=== PATIENT | male | born 1980 | race Caucasian/White ===

== ENCOUNTER 2018-07-08 23:20 | Emergency (ER) | payer BC, OTHER ==
--- NOTE | 2018-07-08 23:45 | ER Document Report ---
ED Headache - General Chief Complaint: Headache Stated Complaint: HEAD PAIN Time Seen by Provider: 07/08/18 23:40 Mode of Arrival: Ambulatory Information source: Patient Notes: 38-year-old male presents to ED for complaint of headache for 6 or 7 days off and on. He states goes from there is muscles of his neck up to the back of his head up to the front of his head. He states today he was getting people out of the water moving around and had no problems. States when he settled down at the end evening the pain came back again. He states whenever he is distracted and up moving around doing something he does not have a headache it is when he sitting down to relax that he gets the headache. He states he does have a history of anxiety depression panic attacks and dystonic disorder. Patient states that his told him earlier that whenever he was distracted his headache was not as bad. Patient is alert and oriented, pupils equal and react to light, respirations regular, and unlabored speaking in full sentences walking with a even steady gait. TRAVEL OUTSIDE OF THE [place] IN LAST 30 DAYS: No - HPI Patient complains to provider of: Headache Onset: Other - 6 or 7 days Onset was: Other - Intermittently when he is sitting down relaxing Timing: Still present Quality of pain: Sharp Severity: Moderate Pain Level: 4 Associated symptoms: Nausea/vomiting Exacerbated by: Other - His headache is the worst when he is sitting down relaxing and not busy states it is actually better when he is up moving around and busy Similar symptoms previously: Yes Recently seen / treated by doctor: No - Related Data Allergies/Adverse Reactions: bee stings Allergy (Severe, Uncoded 04/28/14 18:31) Anaphylaxis Past Medical History - General Information source: Patient - Social History Smoking Status: Former Smoker Chew tobacco use (# tins/day): No Frequency of alcohol use: Occasional Drug Abuse: None Occupation: ag service manager Lives with: Family Family History: Reviewed & Not Pertinent Patient has suicidal ideation: No Patient has homicidal ideation: No - Past Medical History Cardiac Medical History: Reports: Hx Hypercholesterolemia Pulmonary Medical History: Reports: None EENT Medical History: Reports: None Neurological Medical History: Reports: None Endocrine Medical History: Reports: None Renal/ Medical History: Reports: None Malignancy Medical History: Reports None GI Medical History: Reports: None Musculoskeletal Medical History: Reports Hx Arthritis, Reports Hx Musculoskeletal Deformity, Reports Hx Musculoskeletal Trauma Skin Medical History: Reports None Psychiatric Medical History: Reports: Hx Anxiety, Hx Depression, Hx Post Traumatic Stress Disorder Traumatic Medical History: Reports: Hx Fractures - Nose and fifth finger on left hand Infectious Medical History: Reports: None Past Surgical History: Reports: Hx Orthopedic Surgery - L hip, shoulder, Hx Tonsillectomy, Other - As surgery RP K - Immunizations Immunizations up to date: Yes Hx Diphtheria, Pertussis, Tetanus Vaccination: No Review of Systems - Review of Systems Constitutional: No symptoms reported EENT: No symptoms reported Cardiovascular: No symptoms reported Respiratory: No symptoms reported Gastrointestinal: Nausea. denies: Vomiting Genitourinary: No symptoms reported Male Genitourinary: No symptoms reported Musculoskeletal: No symptoms reported Skin: No symptoms reported Hematologic/Lymphatic: No symptoms reported Neurological/Psychological: Anxiety - States he has been anxious, states headache worse when thinking too much, Headaches. denies: Confusion, Sensory change, Weakness, Gait changes, Loss of power, Lost consciousness, Speech impairment, Numbness, Tingling, Tremor -: Yes All other systems reviewed and negative Physical Exam - Vital signs Vitals: Temp Pulse Resp BP Pulse Ox 98.9 F 86 18 162/79 H 98 07/08/18 23:26 07/08/18 23:26 07/08/18 23:26 07/08/18 23:26 07/08/18 23:26 Interpretation: Normal - General General appearance: Appears well, Alert - HEENT Head: Normocephalic, Atraumatic Eyes: Normal Extraocular movements intact: Yes Pupils: PERRL Visual sutherlnad normal: Yes Ears: Normal External canal: Normal Tympanic membrane: Normal Nasal: Normal Mouth/Lips: Normal Mucous membranes: Normal Pharynx: Normal Neck: Normal - Respiratory Respiratory status: No respiratory distress Chest status: Nontender Breath sounds: Normal Chest palpation: Normal - Cardiovascular Rhythm: Regular Heart sounds: Normal auscultation Murmur: No - Abdominal Inspection: Normal Distension: No distension Bowel sounds: Normal Tenderness: Nontender Organomegaly: No organomegaly - Back Back: Normal, Nontender - Extremities General upper extremity: Normal inspection, Nontender, Normal color, Normal ROM , Normal temperature General lower extremity: Normal inspection, Nontender, Normal color, Normal ROM , Normal temperature, Normal weight bearing. 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 He states he has been having a headache with some nausea for the last 6 or 7 days. states the pain is much worse when he is trying to relax and think in too much and is much less when he is up moving around. stated when she massaged his neck his headache got much better last night. Patient will be discharged home to follow-up with his primary doctor and to return to the ED for any increase in symptoms. He states he has not hit his head he does not have any history of any injuries to his head recently. - Vital Signs Vital signs: Temp Pulse Resp BP Pulse Ox 98.1 F 76 16 147/91 H 100 07/09/18 00:07/09/18 00:07/09/18 00:23 07/09/18 00:07/09/18 00:23 Discharge - Discharge Clinical Impression: Headache Condition: Stable Disposition: HOME, SELF-CARE Instructions: Family Physicians / Practices Additional Instructions: HEADACHE: The physician does not feel that the headache you are experiencing has a serious underlying cause. Most headaches are due to emotional stress, with resultant muscle tension (tension headache). Occasionally, headaches are secondary to changes in the blood vessels of the scalp (vascular headache and migraine headache). Sometimes, a headache is the first symptom of another developing illness, such as a viral infection. You have no evidence of stroke, bleeding, meningitis, or other serious cause of your headache. The treatment of headaches varies with the severity and cause of the pain. Not all headaches need pain shots. In fact, there is evidence that using narcotics for headaches may make them worse in the long run. The physician will determine the therapy that's in your best interest. If you develop a fever, if the headache is different from any you've previously experienced, or if the headache progressively worsens, then call your physician at once or go to the emergency room. USE OF DIPHENHYDRAMINE: Diphenhydramine (Benadryl) is an antihistamine and has been recommended to help treat your headache and to prevent side effects of other medications used to treat headaches. The medication can be repeated four times daily. Age Elixir (12.5 mg/tsp) 25 mg pill adult 1-2 tabs Antihistamines may cause drowsiness, especially with the first dose. Do not operate machinery or drive while under the effects of the medication. Do not combine the medication with alcohol, or with any other medication without talking to your doctor. COMPAZINE FOR HEADACHE: You have received therapy for headaches, using Compazine. This treatment is dramatically successful in relieving the headache in about 50 percent of cases. When it works, it provides a rapid method of eliminating the headache without resorting to narcotics (and the problems associated with them). Most patients still feel fully alert after the Compazine, but others may be slightly drowsy. It's best not to drive or work with machinery for six to eight hours. Do not take alcohol or other medication unless you discuss it with the doctor. If you develop tightness and spasms in your muscles, especially the neck and tongue, you should return. This is a side effect which can be treated. Ibuprofen Ibuprofen is an excellent, safe drug for pain control. In addition, it has potent antiinflammatory effects which are beneficial, especially in the treatment of injuries, arthritis, or tendonitis. It's best to take ibuprofen with food. Persons with ulcer disease or allergy to aspirin should notify their physician of this before taking ibuprofen. Take the medication exactly as prescribed. Don't take additional doses unless instructed to do so by your doctor. If you develop wheezing, shortness of breath, hives, faintness, stomach pain, vomiting, or dark black stools, return for re-evaluation at once. FOLLOW-UP CARE: If you have been referred to a physician for follow-up care, call the physician s office for an appointment as you were instructed or within the next two days. If you experience worsening or a significant change in your symptoms, notify the physician immediately or return to the Emergency Department at any time for re-evaluation. Prescriptions: Diphenhydramine HCl [Benadryl] 50 mg PO Q8HP PRN #18 capsule PRN Reason: Ibuprofen 800 mg PO Q8HP PRN #9 tablet PRN Reason: For Headache Prochlorperazine Maleate [Compazine 10 mg Tablet] 10 mg PO Q8HP PRN #9 tablet PRN Reason: Forms: Elevated Blood Pressure
[2018-07-09 00:25] VITALS: BP 147/91
== END 2018-07-09 00:23 | disposition home or self-care (01) ==
LOC: ER 23:20
DX: R51 Headache (principal); M54.2 Cervicalgia; R11.0 Nausea; F41.9 Anxiety disorder, unspecified; F32.9 Major depressive disorder, single episode, unspecified; Z87.891 Personal history of nicotine dependence
CPT/HCPCS: 99283